=== PATIENT | female | born 1965 | race Caucasian/White ===

== ENCOUNTER 2017-12-16 21:28 | Emergency (ER) | payer BC ==
[~2017-12-16] VITALS: Ht 157.5 cm; Wt 83.8 kg
[2017-12-17 00:07] VITALS: BP 131/64
== END 2017-12-17 00:05 | disposition home or self-care (01) ==
LOC: EME 21:28
PROC: 3E0234Z Introduction of Serum, Toxoid and Vaccine into Muscle, Percutaneous Approach (ICD-10-PCS; principal; 2017-12-16)
DX: S60.351A Superficial foreign body of right thumb, initial encounter (principal); Y93.H9 Activity, other involving exterior property and land maintenance, building and construction; F41.9 Anxiety disorder, unspecified; Z23 Encounter for immunization; Z88.8 Allergy status to other drugs, medicaments and biological substances
CPT/HCPCS: 73140; 99281; 99284